=== PATIENT | female | born 1990 ===

== ENCOUNTER → 2020-09-05 | Outpatient (CLI) | payer BC ==
[2020-09-05 17:58] LABS: CHOL/HDL RATIO 3.8; Cholesterol 163 mg/dL (50-200); HDL Cholesterol 43 mg/dL (>39); LDL/HDL RATIO 2.2; Low Density Lipoprotein Chol 95 mg/dL (0-110); Triglycerides 124 mg/dL (30-140); Very Low Density Lipoprot Chol 24 mg/dL (6-28)
== END ==
LOC: LAB SHORT 15:23 → LAB 15:23 → LAB FUT 06-08 15:30
PROVIDERS: Student in an Organized Health Care Education/Training Program
DX: R41.3 Other amnesia (principal); R25.1 Tremor, unspecified; R90.82 White matter disease, unspecified; Z83.49 Family history of other endocrine, nutritional and metabolic diseases
CPT/HCPCS: 36415; 80061; 81240; 81291; 83036; 83090; 85651